=== PATIENT | female | born 1990 | race African-American/Black ===

== ENCOUNTER 2019-01-22 16:28 | Observation (INO) | payer OTHER ==
[~2019-01-22] VITALS: Ht 165.1 cm; Wt 81.6 kg
[2019-01-22 17:34] LABS: APPEARANCE,URINE CLEAR (CLEAR); BILIRUBIN,URINE NEGATIVE (NEGATIVE); BLOOD, URINE NEGATIVE (NEGATIVE); LEUKOCYTE ESTERASE ,URINE 1+ (NEGATIVE); NITRITE, URINE NEGATIVE (NEGATIVE); PH,URINE 6.5 (5.0-9.0); UGLUCOSE NEGATIVE (NEGATIVE)
[2019-01-22 17:35] LABS: BASOPHILS % (AUTO) 0.4 % (0.0-2.0); EOSINOPHILS # (AUTO) 0.1 K/uL (0-0.4); EOSINOPHILS % (AUTO) 1.2 % (0.0-4.0); HEMATOCRIT 32.5 % (36-48); HEMOGLOBIN 10.7 g/dL (12.0-16.0); LYMPHOCYTES # (AUTO) 1.7 K/uL (2.5-16.5); MEAN CORPUSCULAR HEMOGLOBIN 31 pg (27-31); MEAN CORPUSCULAR HGB CONC 33 g/dL (33-37); MEAN CORPUSCULAR VOLUME 93.2 fL (80-94); MONOCYTES # (AUTO) 0.9 K/uL (0.8-1.0); MONOCYTES % (AUTO) 9.4 % (1.7-9.3); NEUTROPHILS # (AUTO) 7.3 K/uL (1.8-7.7); PLATELET COUNT (AUTO) 258 K/uL (140-450); RED BLOOD CELL COUNT(AUTO) 3.49 MIL/uL (4.20-5.40); RED CELL DISTRIBUTION WIDTH 13.7 % (11.6-13.7); WHITE BLOOD COUNT (AUTO) 10.1 K/uL (4.8-10.8)
[2019-01-22 17:40] LABS: COLOR,URINE STRAW (YELLOW)
[2019-01-22 17:49] LABS: ALBUMIN 2.7 g/dL (3.4-5.0); ANION GAP 11.7 (8-16); CREATININE 0.5 mg/dL (0.6-1.3); POTASSIUM 3.7 mmol/L (3.5-5.1); TOTAL BILIRUBIN 0.2 mg/dL (0.0-1.0)
[2019-01-22 17:52] LABS: RBC,URINE NONE SEEN /HPF (0-5); WBC,URINE 0-5 /HPF (0-5)
[2019-01-22] MEDS ORDERED: BETAMETH ACET/BETAMETH NA PH 30 MG/5 ML VIAL IM SCH (17:54)
[2019-01-22] MEDS ORDERED: BETAMETH ACET/BETAMETH NA PH 30 MG/5 ML VIAL IM ONE (18:27)
[2019-01-22 18:32] VITALS: BP 119/61
== END 2019-01-22 21:00 | disposition home or self-care (01) ==
LOC: MFCC 16:28
PROVIDERS: ADMIT Obstetrics & Gynecology; ATTEND Obstetrics & Gynecology
DX: O36.8120 Decreased fetal movements, second trimester, not applicable or unspecified (principal); Z3A.27 27 weeks gestation of pregnancy
CPT/HCPCS: 36415; 59025; 76805; 76819; 80053; 81001; 85025; 86886; 86900; 86901; 87086; 96372; G0378; J0702; Q0092

== ENCOUNTER 2019-01-23 18:32 | Observation (INO) | payer OTHER ==
[~2019-01-23] VITALS: Ht 165.1 cm; Wt 83.0 kg
[2019-01-23] MEDS ORDERED: BETAMETH ACET/BETAMETH NA PH 30 MG/5 ML VIAL IM ONE ×2 (19:30→19:34)
[2019-01-23 19:36] VITALS: BP 128/70
== END 2019-01-23 19:40 | disposition home or self-care (01) ==
LOC: MLD 18:32
PROVIDERS: ADMIT Obstetrics & Gynecology; ATTEND Obstetrics & Gynecology
DX: O26.893 Other specified pregnancy related conditions, third trimester (principal); Z3A.30 30 weeks gestation of pregnancy
CPT/HCPCS: 96372; G0378; J0702

== ENCOUNTER 2019-03-25 16:40 | Observation (INO) | payer OTHER ==
[~2019-03-25] VITALS: Ht 165.1 cm; Wt 83.0 kg
[2019-03-25 19:33] VITALS: BP 130/71
== END 2019-03-25 21:05 | disposition home or self-care (01) ==
LOC: MLD 16:40
PROVIDERS: ADMIT Obstetrics & Gynecology; ATTEND Obstetrics & Gynecology
DX: O36.8130 Decreased fetal movements, third trimester, not applicable or unspecified (principal); Z3A.37 37 weeks gestation of pregnancy
CPT/HCPCS: 76819; 81000; G0378; Q0092

== ENCOUNTER 2019-03-27 10:21 | Observation (INO) | payer OTHER ==
[~2019-03-27] VITALS: Ht 165.1 cm; Wt 83.0 kg
[2019-03-27 10:56] VITALS: BP 132/74
== END 2019-03-27 11:15 | disposition home or self-care (01) ==
LOC: MLD 10:21
PROVIDERS: ADMIT Obstetrics & Gynecology; ATTEND Obstetrics & Gynecology
DX: O36.8130 Decreased fetal movements, third trimester, not applicable or unspecified (principal); Z3A.36 36 weeks gestation of pregnancy
CPT/HCPCS: 59025; 81000; G0378

== ENCOUNTER 2019-03-31 14:21 | Observation (INO) | payer OTHER ==
[~2019-03-31] VITALS: Ht 165.1 cm; Wt 83.0 kg
== END 2019-03-31 15:29 | disposition home or self-care (01) ==
LOC: MLD 14:21
PROVIDERS: ADMIT Obstetrics & Gynecology; ATTEND Obstetrics & Gynecology
DX: Z34.93 Encounter for supervision of normal pregnancy, unspecified, third trimester (principal); Z3A.37 37 weeks gestation of pregnancy
CPT/HCPCS: 59025; 81000; G0378

== ENCOUNTER 2019-04-10 23:20 | Inpatient (IN) | payer MEDICAID, OTHER ==
[~2019-04-10] VITALS: Ht 165.1 cm; Wt 81.6 kg
[2019-04-11 00:40] VITALS: BP 119/70
[2019-04-11] MEDS ORDERED: IBUPROFEN 800 MG TAB PO PRN (00:55)
[2019-04-11] MEDS ORDERED: CITRIC ACID/SODIUM CITRATE 30 ML UDC PO ONE (00:55)
[2019-04-11] MEDS ORDERED: METOCLOPRAMIDE 10 MG/2 ML INJ VIAL IVP ONE (00:55)
[2019-04-11 01:31] LABS: BASOPHILS # (AUTO) 0.1 K/uL (0.00-0.22); BASOPHILS % (AUTO) 0.5 % (0.0-2.0); EOSINOPHILS # (AUTO) 0.2 K/uL (0-0.4); EOSINOPHILS % (AUTO) 1.6 % (0.0-4.0); HEMATOCRIT 34.3 % (36-48); HEMOGLOBIN 11.2 g/dL (12.0-16.0); LYMPHOCYTES # (AUTO) 1.2 K/uL (2.5-16.5); LYMPHOCYTES % (AUTO) 12.1 % (20.5-51.1); MEAN CORPUSCULAR HEMOGLOBIN 30 pg (27-31); MEAN CORPUSCULAR HGB CONC 33 g/dL (33-37); MONOCYTES # (AUTO) 0.8 K/uL (0.8-1.0); NEUTROPHILS % (AUTO) 77.8 % (42.2-75.2); PLATELET COUNT (AUTO) 231 K/uL (140-450); RED BLOOD CELL COUNT(AUTO) 3.81 MIL/uL (4.20-5.40); RED CELL DISTRIBUTION WIDTH 15.1 % (11.6-13.7); WHITE BLOOD COUNT (AUTO) 10.3 K/uL (4.8-10.8)
[2019-04-11 01:38] LABS: APPEARANCE,URINE SL CLOUDY (CLEAR); BILIRUBIN,URINE NEGATIVE (NEGATIVE); BLOOD, URINE NEGATIVE (NEGATIVE); COLOR,URINE YELLOW (YELLOW); LEUKOCYTE ESTERASE ,URINE 2+ (NEGATIVE); NITRITE, URINE NEGATIVE (NEGATIVE); UGLUCOSE NEGATIVE (NEGATIVE)
[2019-04-11 01:45] LABS: ALBUMIN 2.4 g/dL (3.4-5.0); CARBON DIOXIDE 25.3 mmol/L (21-32); CREATININE 0.5 mg/dL (0.6-1.3); TOTAL BILIRUBIN 0.3 mg/dL (0.0-1.0)
[2019-04-11 01:46] LABS: ANION GAP 13.2 (8-16); POTASSIUM 3.5 mmol/L (3.5-5.1)
[2019-04-11] MEDS: LACTATED RINGERS 1,000 ML IV SCH ×2 (02:00→03:04)
[2019-04-11 02:28] LABS: RBC,URINE 0-5 /HPF (0-5)
[2019-04-11 02:29] LABS: WBC,URINE TOO MANY TO COUNT /HPF (0-5); YEAST,URINE Rare /HPF (None Seen)
[2019-04-11] MEDS ORDERED: ceFAZolin 1,000 MG VIAL ONE (05:46)
[2019-04-11] MEDS ORDERED: CITRIC ACID/SODIUM CITRATE 30 ML UDC ONE (05:48)
[2019-04-11] MEDS ORDERED: ePHEDrine 50 MG/ML VIAL ONE (07:15)
[2019-04-11] MEDS ORDERED: diphenhydrAMINE 50 MG/ML VIAL ONE (07:44)
[2019-04-11] MEDS ORDERED: ONDANSETRON 4 MG/2 ML VIAL ONE (07:47)
[2019-04-11] MEDS ORDERED: NALBUPHINE 10 MG/ML AMP IVP PRN (07:55)
[2019-04-11] MEDS ORDERED: NALOXONE 0.4 MG/ML VIAL IVP PRN ×3 (07:55)
[2019-04-11] MEDS ORDERED: diphenhydrAMINE 50 MG/ML VIAL IVP PRN (07:55)
[2019-04-11] MEDS ORDERED: KETOROLAC 30 MG/ML VIAL IVP PRN (07:55)
[2019-04-11] MEDS ORDERED: ONDANSETRON 4 MG/2 ML VIAL IVP PRN ×2 (07:55)
--- NOTE | 2019-04-11 08:57 | NUR ---
PATIENT HAS BEEN SCREENED AND CATEGORIZED LOW NUTRITION RISK. PATIENT WILL BE SEEN WITHIN 7 DAYS OF ADMISSION. 04/17/[address]
[2019-04-11] MEDS: OXYTOCIN 20 UNITS/LR PREMIX 1,000 ML IV ONE ×2 (09:17→09:29)
[2019-04-11] MEDS ORDERED: OXYTOCIN 10 UNITS in LACTATED RINGERS 1,000 ML IV SCH (10:53)
[2019-04-11] MEDS: OXYTOCIN 20 UNITS in LACTATED RINGERS 1,000 ML IV SCH ×2 (11:44→16:44)
[2019-04-11] MEDS ORDERED: SIMETHICONE 80 MG TAB.CHEW PO PRN (19:35)
[2019-04-11] MEDS ORDERED: MEASLES, MUMPS, AND RUBELLA 1 VIAL SQVAC PRN (19:35)
[2019-04-11] MEDS ORDERED: METHYLERGONOVINE 0.2 MG/ML AMP IM PRN (19:35)
[2019-04-11] MEDS ORDERED: KETOROLAC 30 MG/ML VIAL IM/IVP SCH (20:00)
[2019-04-12] MEDS ORDERED: OXYTOCIN 20 UNITS/LR PREMIX 1,000 ML IV ONE (00:20)
[2019-04-12] MEDS: OXYTOCIN 20 UNITS in LACTATED RINGERS 1,000 ML IV SCH (00:23)
[2019-04-12 06:09] LABS: BASOPHILS % (AUTO) 0.3 % (0.0-2.0); EOSINOPHILS % (AUTO) 0.3 % (0.0-4.0); HEMATOCRIT 35.3 % (36-48); HEMOGLOBIN 11.4 g/dL (12.0-16.0); LYMPHOCYTES % (AUTO) 7.4 % (20.5-51.1); MEAN CORPUSCULAR HEMOGLOBIN 29 pg (27-31); MEAN CORPUSCULAR HGB CONC 32 g/dL (33-37); MEAN CORPUSCULAR VOLUME 90.6 fL (80-94); MONOCYTES # (AUTO) 1.1 K/uL (0.8-1.0); MONOCYTES % (AUTO) 7.9 % (1.7-9.3); NEUTROPHILS # (AUTO) 11.6 K/uL (1.8-7.7); NEUTROPHILS % (AUTO) 84.1 % (42.2-75.2); PLATELET COUNT (AUTO) 220 K/uL (140-450); WHITE BLOOD COUNT (AUTO) 13.8 K/uL (4.8-10.8)
[2019-04-12] MEDS ORDERED: BISACODYL 10 MG SUPP RC SCH (09:00)
[2019-04-12] MEDS: oxyCODONE/APAP 5/325 MG 1 TAB TAB PO SCH ×2 (09:01→16:30)
[2019-04-12] MEDS ORDERED: CAMERA MC ONE (20:20)
== END 2019-04-12 21:15 | disposition home or self-care (01) | DRG 540 ==
LOC: MLD 23:20 → OBSVTOIN 04-11 00:40 → MFCC 04-11 09:45
PROVIDERS: ADMIT Obstetrics & Gynecology; ATTEND Obstetrics & Gynecology
PROC: 0UB70ZZ Excision of Bilateral Fallopian Tubes, Open Approach (ICD-10-PCS; 2019-04-11)
PROC: 10D00Z1 Extraction of Products of Conception, Low, Open Approach (ICD-10-PCS; principal; 2019-04-11 07:30)
DX: O34.211 Maternal care for low transverse scar from previous cesarean delivery (principal); K66.0 Peritoneal adhesions (postprocedural) (postinfection); Z30.2 Encounter for sterilization; Z37.0 Single live birth; O99.62 Diseases of the digestive system complicating childbirth
CPT/HCPCS: 36415; 51702; 80053; 81001; 85025; 86592; 86886; 86900; 86901; 87086; 88302; G0378; J0690; J1200; J1885; J2405; J2590; J7060; J7120